=== PATIENT | female | born 1960 | race Two or more races ===

== ENCOUNTER → 2017-03-25 | Outpatient (CLI) | payer BC ==
--- NOTE | 2017-03-25 15:02 | RADIOLOGY REPORT (SQ) ---
EXAM DESCRIPTION: NM HIDA SCAN WITH CCK COMPLETED DATE/TIME: 03/25/2017 2:44 pm REASON FOR STUDY: R10.9 UNSPECIFIED ABDOMINAL PAIN R10.9 UNSPECIFIED ABDOMINAL PAIN COMPARISON: None. RADIONUCLIDE AND DOSE: DOSAGE RADIONUCLIDE: 5.4 millicuries Tc99m Mebrofenin. DOSAGE CCK: 1.3 Micrograms. DOSAGE MORPHINE: Not required. The route of agent administration: Intravenous TECHNIQUE: Serial imaging right upper quadrant up to 60 minutes following injection of radionuclide. CCK injected after gallbladder visualized. LIMITATIONS: None. FINDINGS: LIVER: Normal visualization without areas of photopenia. INTRA AND EXTRAHEPATIC BILE DUCTS: Normal accumulation of activity. GALLBLADDER: Normal visualization. Calculated Ejection Fraction of 26%. Below the normal value of 35 % or greater. PHYSICAL RESPONSE: Patients presenting complaint was reproduced. OTHER: No other significant finding. IMPRESSION: LOW GALLBLADDER EJECTION FRACTION. EVIDENCE FOR BILIARY DYSKINESIS. NO CYSTIC OR COMMO N DUCT OBSTRUCTION. TECHNICAL DOCUMENTATION: JOB ID: [id number] [employer]- All Rights Reserved
== END ==
LOC: RAD 15:52
PROVIDERS: ATTEND Internal Medicine
DX: R10.9 Unspecified abdominal pain (principal)
CPT/HCPCS: 78227; J2805; A9537; Q9969

== ENCOUNTER → 2017-04-14 | Outpatient (CLI) | payer BC ==
--- NOTE | 2017-04-14 16:35 | RADIOLOGY REPORT (SQ) ---
EXAM DESCRIPTION: CT ABD/PELVIS WITH IV ORAL COMPLETED DATE/TIME: 04/14/2017 1:55 pm REASON FOR STUDY: ABN BOWEL MOVEMENT (R19.8) R19.8 OTH SYMPTOMS AND SIGNS INVOLVING THE DGSTV SYS A ND ABD COMPARISON: 07/13/2009. TECHNIQUE: CT scan of the abdomen and pelvis performed with intravenous and oral contrast using mia sheila scanning technique with dynamic intravenous contrast injection. Images reviewed with lung, soft t issue, and bone windows. Reconstructed coronal and sagittal MPR images reviewed. Delayed images for e valuation of the urinary system also acquired. All images stored on PACS. All CT scanners at this facility use dose modulation, iterative reconstruction, and/or weight based d osing when appropriate to reduce radiation dose to as low as reasonably achievable (ALARA). [facility]: Dose Right [facility]: CareDose [facility]: Dose Right [facility]: Teradose 4D [facility]: InterResolve CONTRAST TYPE AND DOSE: contrast/concentration: Isovue 370.00 mg/ml; Total Contrast Delivered: 68.0 ml; Total Saline Delivered: 65.0 ml RENAL FUNCTION: Creatinine 0.8. RADIATION DOSE: CT Rad equipment meets quality standard of care and radiation dose reduction techniq ues were employed. CTDIvol: 4.4 - 5.2 mGy. DLP: 487 mGy-cm.. LIMITATIONS: None. FINDINGS: LOWER CHEST: No significant findings. No nodules or infiltrates. LIVER: Normal size. Subcentimeter low-attenuation lesions in the left lobe. 1.5 cm low-attenuation lesion in the right lobe which becomes isodense on delayed images. No dilated ducts. SPLEEN: Normal size. No focal lesions. PANCREAS: No masses. No significant calcifications. No adjacent inflammation or peripancreatic fluid collections. Pancreatic duct not dilated. GALLBLADDER: No identified stones by CT criteria. No inflammatory changes to suggest cholecystitis. ADRENAL GLANDS: No significant masses or asymmetry. RIGHT KIDNEY AND URETER: No solid masses. No significant calcification. No hydronephrosis or hydroure ter. LEFT KIDNEY AND URETER: No solid masses. No significant calcification. No hydronephrosis or hydrouret er. AORTA AND VESSELS: No aneurysm. No dissection. Renal arteries, SMA, celiac without stenosis. RETROPERITONEUM: No retroperitoneal adenopathy, hemorrhage or masses. BOWEL AND PERITONEAL CAVITY: No obstruction. No visualized masses. No free fluid. No inflammatory ch anges or thickening of bowel wall. APPENDIX: Normal. PELVIS: No significant masses. Normal bladder. No free fluid. ABDOMINAL WALL: No masses. No hernias. BONES: No significant or acute findings. OTHER: No other significant finding. IMPRESSION: 1. 1.5 CM LESION IN THE RIGHT LOBE OF THE LIVER. ENHANCEMENT PATTERN MOST CONSISTENT WITH AN INCIDEN OMAR HEMANGIOMA. A FEW SMALLER SUBCENTIMETER HEPATIC LESIONS ARE TOO SMALL TO CHARACTERIZE AND MAY BE TINY CYSTS. 2. NO OTHER SIGNIFICANT OR ACUTE FINDINGS IN THE ABDOMEN OR PELVIS. TECHNICAL DOCUMENTATION: JOB ID: [id number] Quality ID # [id number]: Final reports with documentation of one or more dose reduction techniques (e.g., Au tomated exposure control, adjustment of the mA and/or kV according to patient size, use of iterative reconstruction technique) 2010 [employer]- All Rights Reserved
== END ==
LOC: RAD 13:06
PROVIDERS: ATTEND Surgery
DX: R19.8 Other specified symptoms and signs involving the digestive system and abdomen (principal); D18.03 Hemangioma of intra-abdominal structures
CPT/HCPCS: 74160; 74177; 82565

== ENCOUNTER 2017-04-29 06:31 | Day surgery (SDC) | payer BC ==
[2017-04-29 07:08] LABS: HEMATOCRIT 42.2 % (36.0-47.0); HEMOGLOBIN 14.4 g/dL (12.0-15.5); MEAN CORPUSCULAR HEMOGLOBIN 29.2 pg (27.0-33.4); MEAN CORPUSCULAR HGB CONC 34.2 g/dL (32.0-36.0); MEAN CORPUSCULAR VOLUME 85 fl (80-97); PLATELET COUNT 235 10^3/uL (150-450); RED BLOOD COUNT 4.95 10^6/uL (3.72-5.28); RED CELL DISTRIBUTION WIDTH 13.3 % (11.5-14.0); WHITE BLOOD COUNT 6.9 10^3/uL (4.0-10.5)
[2017-04-29] MEDS ORDERED: ONDANSETRON HCL INJ/PF 4 MG/2 ML SDV ONE (07:25)
[2017-04-29] MEDS ORDERED: GLYCOPYRROLATE INJ 0.4 MG/2 ML VIAL ONE (07:25)
[2017-04-29] MEDS ORDERED: NALOXONE HCL INJ/PF 0.4 MG/1 ML SDV ONE (07:25)
[2017-04-29] MEDS ORDERED: MIDAZOLAM 2 MG/2 ML INJ ONE (07:26)
[2017-04-29] MEDS ORDERED: GLUCAGON,HUMAN RECOMB 1 MG INJ ONE (07:26)
[2017-04-29] MEDS ORDERED: FLUMAZENIL INJ 0.5 MG/5 ML VIAL ONE (07:26)
[2017-04-29] MEDS ORDERED: EPINEPHRINE INJ 1 MG/10 ML DISP.SYRIN ONE (07:26)
[2017-04-29] MEDS: MIDAZOLAM 2 MG/2 ML INJ ONE ×3 (08:23→08:48)
[2017-04-29] MEDS: FENTANYL CITRATE INJ/PF 100 MCG/2 ML AMPUL ONE ×2 (08:25→08:50)
--- NOTE | 2017-04-29 09:15 | Operative Report ---
Operative Report DATE OF SURGERY: 04/29/17 PREOPERATIVE DIAGNOSIS: Abdominal pain, bowel habit changes POSTOPERATIVE DIAGNOSIS: Small hiatal hernia, abdominal pain, bowel habit changes. OPERATION: Esophagogastroduodenoscopy with distal esophageal biopsies. Colonoscopy. SURGEON: MARCO ANTONIO GRANT ANESTHESIA: Moderate Sedation TISSUE REMOVED OR ALTERED: Distal esophageal biopsy COMPLICATIONS: None ESTIMATED BLOOD LOSS: Minimal INTRAOPERATIVE FINDINGS: Small hiatal hernia. Subtle irregularity at the GE junction. PROCEDURE: Informed consent was obtained. Patient was brought to the endoscopy suite. IV sedation with Versed and fentanyl was administered. Endoscope was passed via the patient's mouth into the second portion of the duodenum. Duodenum appeared to be normal. The gastric mucosa appeared normal. Retroflexed view demonstrated a small hiatal hernia. The GE junction had a very subtle irregularity but no ulcerations and no masses. GE junction biopsies were taken at 4 quadrants to rule out Mendiola's esophagus. Remainder of the esophagus appeared normal. Digital rectal exam revealed no palpable perianal masses. Endoscope was passed via the patient's anus it was fed to the cecum. Patient's sigmoid colon was markedly redundant making the procedure difficult. However after multiple technical measures the scope was able to be passed. The cecum, right colon, transverse colon, descending colon, sigmoid colon, and the rectum were all normal with no polyps no masses no diverticuli. Patient tolerated procedure well with no apparent complications and was taken to the recovery area in stable condition. No etiology of her abdominal pain found on endoscopic evaluation. Await biopsy for possible Mendiola's esophagus. CT scan demonstrated evidence of hemangioma and benign small cysts of the liver but otherwise was unremarkable. With the negative workup other than the diminished gallbladder ejection fraction, I think it would be appropriate to proceed with laparoscopic cholecystectomy. I will discuss this recommendation at the follow-up visit next week.
--- NOTE | 2017-04-29 09:18 | PDOC DISCHARGE SUMMARY ---
Discharge Summary (SDC) - Discharge Final Diagnosis: Abdominal pain. Bowel habit changes. Small hiatal hernia. Date of Surgery: 04/29/17 Discharge Date: 04/29/17 Condition: Good Treatment or Instructions: Esophagogastroduodenoscopy with biopsies. Colonoscopy. May discharge patient home when met discharge criteria. Follow-up with me tomorrow. Discharge Diet: As Tolerated Discharge Activity: Activity As Tolerated Report the Following to Your Physician Immediately: Fever over 101 Degrees, Unusual Bleeding Other Items to Report to MD: Severe abdominal pain
[2017-04-29 09:56] VITALS: BP 126/71
== END 2017-04-29 10:00 | disposition home or self-care (01) ==
LOC: END 06:31
PROVIDERS: ATTEND Surgery
PROC: 0DB48ZX Excision of Esophagogastric Junction, Via Natural or Artificial Opening Endoscopic, Diagnostic (ICD-10-PCS; principal; 2017-04-29 08:00)
DX: K44.9 Diaphragmatic hernia without obstruction or gangrene (principal); K21.0 Gastro-esophageal reflux disease with esophagitis; R10.9 Unspecified abdominal pain; R19.4 Change in bowel habit; E78.5 Hyperlipidemia, unspecified; Z79.899 Other long term (current) drug therapy
CPT/HCPCS: 43239; 45378; 36415; 85027; 88305 ×2; J2250; J3010; J1610; J0171; J2310; J2405; J3490

== ENCOUNTER 2017-05-06 10:48 | Day surgery (SDC) | payer BC ==
[~2017-05-06 10:48] MED LIST: ACETAMINOPHEN 325 MG TABLET PO PRN; CEFAZOLIN 1 GM/D5W RTU 1 GM/50 ML RTUPB IV PRN
[2017-05-06 11:45] LABS: HEMATOCRIT 40.8 % (36.0-47.0); HEMOGLOBIN 13.9 g/dL (12.0-15.5); MEAN CORPUSCULAR HEMOGLOBIN 29.3 pg (27.0-33.4); MEAN CORPUSCULAR HGB CONC 34.2 g/dL (32.0-36.0); MEAN CORPUSCULAR VOLUME 86 fl (80-97); PLATELET COUNT 207 10^3/uL (150-450); RED BLOOD COUNT 4.76 10^6/uL (3.72-5.28); RED CELL DISTRIBUTION WIDTH 13.1 % (11.5-14.0); WHITE BLOOD COUNT 6.3 10^3/uL (4.0-10.5)
[2017-05-06] MEDS ORDERED: FENTANYL CITRATE INJ/PF 100 MCG/2 ML AMPUL ONE ×2 (12:02→12:03)
[2017-05-06] MEDS ORDERED: HYDROMORPHONE HCL INJ/PF 2 MG/ML AMPULE ONE (12:02)
[2017-05-06] MEDS ORDERED: PROPOFOL INJ 200 MG/20 ML VIAL IV ONE (12:03)
[2017-05-06] MEDS ORDERED: MIDAZOLAM 2 MG/2 ML INJ ONE (12:03)
[2017-05-06] MEDS ORDERED: ACETAMINOPHEN 0 ML IV ONE (12:03)
[2017-05-06 12:09] LABS: ALANINE AMINOTRANSFERASE 27 U/L (9-52); ALBUMIN 4.6 g/dL (3.5-5.0); ALKALINE PHOSPHATASE 113 U/L (38-126); ANION GAP 13 (5-19); ASPARTATE AMINO TRANSFERASE 21 U/L (14-36); BILIRUBIN,DIRECT 0.1 mg/dL (0.0-0.4); BILIRUBIN,TOTAL 0.6 mg/dL (0.2-1.3); BLOOD UREA NITROGEN 14 mg/dL (7-20); CALCIUM 10.1 mg/dL (8.4-10.2); CARBON DIOXIDE 25 mmol/L (22-30); CHLORIDE 104 mmol/L (98-107); GLUCOSE 90 mg/dL (75-110); POTASSIUM 4.5 mmol/L (3.6-5.0); SODIUM 141.9 mmol/L (137-145); TOTAL PROTEIN 7.2 g/dL (6.3-8.2)
[2017-05-06] MEDS ORDERED: LIDOCAINE 2% INJ-PF (20 MG/ML) 2 ML AMPUL ONE (12:12)
[2017-05-06] MEDS ORDERED: ONDANSETRON HCL INJ/PF 4 MG/2 ML SDV ONE (12:12)
[2017-05-06] MEDS ORDERED: NEOSTIGMINE METHYLSULFATE 10 MG/10 ML VIAL ONE (12:12)
[2017-05-06] MEDS ORDERED: ROCURONIUM BROMIDE INJ 50 MG/5 ML VIAL IV ONE (12:12)
[2017-05-06] MEDS ORDERED: DEXAMETHASONE SOD PHOSPHATE INJ 4 MG/1 ML VIAL ONE (12:12)
[2017-05-06] MEDS ORDERED: SUCCINYLCHOLINE CHLORIDE INJ 200 MG/10 ML VIAL ONE (12:12)
[2017-05-06] MEDS ORDERED: GLYCOPYRROLATE INJ 0.4 MG/2 ML VIAL ONE (12:12)
[2017-05-06] MEDS ORDERED: BUPIVACAINE HCL 0.25 % INJ/PF (2.5 MG/1 ML) 30 ML VIAL ONE (12:54)
[2017-05-06] MEDS ORDERED: PROMETHAZINE HCL INJ 25 MG/1 ML VIAL IV PRN (13:47)
[2017-05-06] MEDS ORDERED: FENTANYL CITRATE INJ/PF 100 MCG/2 ML AMPUL IV PRN ×3 (13:47)
[2017-05-06] MEDS ORDERED: DIPHENHYDRAMINE HCL 50 MG/ML VIAL IV PRN (13:47)
--- NOTE | 2017-05-06 14:15 | Operative Report ---
Operative Report DATE OF SURGERY: 05/06/17 PREOPERATIVE DIAGNOSIS: Biliary dyskinesia POSTOPERATIVE DIAGNOSIS: Biliary dyskinesia OPERATION: Laparoscopic cholecystectomy SURGEON: MARCO ANTONIO GRANT ANESTHESIA: GA TISSUE REMOVED OR ALTERED: gallBladder COMPLICATIONS: None ESTIMATED BLOOD LOSS: Minimal INTRAOPERATIVE FINDINGS: None PROCEDURE: Informed consent was obtained. Patient was brought to the operating room placed operating table in supine position. After satisfactory induction of general anesthesia patient's abdomen was prepped and draped in usual sterile fashion. A infraumbilical midline incision was made dissection carried out thru the fascia and the peritoneal cavity entered without difficulty. Sanford trocar was inserted pneumoperitoneum produced good patient toleration. 5 mm trocar was placed in the right subcostal location another 5 mm trocar was placed in a subxiphoid location entering the peritoneal cavity to the right- hand side of the falciform ligament. Another 5 mm trocar was placed in the midabdomen care home between the right subcoastal and subxiphoid trocar sites. The gallbladder was grasped retracted cephalad over the dome of the liver. The infundibulum of the gallbladder was grasped retracted laterally and inferiorly thus exposing calot's triangle. There was lymphatics going to calot's node which was clipped and divided. The gallbladder cystic duct junction was clearly identified. The cystic artery was clearly identified. The cystic duct was clipped and divided as was the cystic artery. The gallbladder was taken off the gallbladder bed using the hook electrocautery technique. There was small amount of bile spillage during the case. The operative field was irrigated at the end of the case and irrigation fluid was perfectly clear as it was aspirated. The gallbladder was placed in an Endobag and removed through the Sanford trocar site fascial defect. Hemostasis appeared excellent. All trochars were removed under the direct vision a laparoscope to ensure hemostasis. The Sanford trocar site fascial defect was closed with interrupted Vicryl sutures. All skin incisions were closed with subcuticular interrupted Monocryl sutures. Marcaine was injected at the operative sites. Patient tolerated procedure well with no apparent complications and was taken to the recovery area in stable condition.
[2017-05-06] MEDS ORDERED: RINGERS SOLUTION,LACTATED 1,000 ML IV PRN (14:17)
[2017-05-06] MEDS ORDERED: OXYCODONE-ACETAMINOPHEN 5-325 MG TABLET PO PRN (14:17)
[2017-05-06] MEDS ORDERED: ONDANSETRON HCL INJ/PF 4 MG/2 ML SDV IV PRN (14:17)
--- NOTE | 2017-05-06 14:17 | Discharge Summary ---
Discharge Summary (SDC) - Discharge Final Diagnosis: Biliary dyskinesia Date of Surgery: 05/06/17 Discharge Date: 05/06/17 Condition: Good Treatment or Instructions: Underwent laparoscopic cholecystectomy. May discharge patient home when met discharge criteria. May shower in 2 days. Stay active at home but avoid strenuous activity. Follow-up with me in 2 weeks. Prescriptions: Oxycodone HCl/Acetaminophen [Percocet 5-325 mg Tablet] 1 tab PO ASDIR PRN #15 tablet PRN Reason: Referrals: LIANA MARTINEZ FNP [Primary Care Provider] - Discharge Diet: As Tolerated Discharge Activity: Activity As Tolerated - Stay active but avoid strenuous activity. Report the Following to Your Physician Immediately: Yellow Skin, Fever over 101 Degrees, Unusual Bleeding, Drainage-Foul Smelling
[2017-05-06 17:17] VITALS: BP 133/79
== END 2017-05-06 17:05 | disposition home or self-care (01) ==
LOC: OROUT 10:48
PROVIDERS: ATTEND Surgery
PROC: 0FT44ZZ Resection of Gallbladder, Percutaneous Endoscopic Approach (ICD-10-PCS; principal; 2017-05-06 13:00)
DX: K82.8 Other specified diseases of gallbladder (principal); K21.9 Gastro-esophageal reflux disease without esophagitis; E78.5 Hyperlipidemia, unspecified; K83.8 Other specified diseases of biliary tract; K76.89 Other specified diseases of liver; Z79.899 Other long term (current) drug therapy; Z85.828 Personal history of other malignant neoplasm of skin; Z86.19 Personal history of other infectious and parasitic diseases; Z87.442 Personal history of urinary calculi
CPT/HCPCS: 36415; 85027; 80053; 88304 ×2; 47562; J2250; J0690; J3490 ×2; J1100; J3010; J1170; J0330; J2405; J2704; 790; J0131